=== PATIENT | male | born 1970 | race African-American/Black ===

== ENCOUNTER → 2018-12-07 | Outpatient (REF) | LOC: M LAB LCGH 11:49 | PROVIDERS: ATTEND Surgery | DX: Z00.00 Encounter for general adult medical examination without abnormal findings (principal) ==

== ENCOUNTER → 2022-04-08 | Outpatient (REF) | payer OTHER ==
[2022-04-08 19:35] LABS: TOTAL PROTEIN,RANDOM URINE 40.9 MG/DL (0.0-14.0)
[2022-04-08 19:48] LABS: CORTISOL AM 13.3 UG/DL (4.3-22.4)
[2022-04-08 19:53] LABS: FERRITIN 74.5 NG/ML (10.5-307.3)
[2022-04-08 20:00] LABS: FOLATE 10.7 NG/ML (>5.4)
== END ==
LOC: M LAB REF 17:02
PROVIDERS: ATTEND Internal Medicine Nephrology
DX: I10 Essential (primary) hypertension (principal); N18.31 Chronic kidney disease, stage 3a

== ENCOUNTER → 2022-05-20 | Outpatient (REF) | payer OTHER ==
[2022-05-20 18:51] LABS: MAU/CREAT RATIO 12.2 MCG/MG (0.0-30.0)
== END ==
LOC: M LAB REF 17:11
PROVIDERS: ATTEND Internal Medicine Nephrology
DX: N18.31 Chronic kidney disease, stage 3a (principal)

== ENCOUNTER 2022-06-03 12:59 | Outpatient (CLI) | payer OTHER ==
[~2022-06-03 12:59] MED LIST: ALBUTEROL SULFATE 2.5MG/0.5ML INH NEB SOLN INH PRN; EPINEPHrine INJ 1 MG/ML 1ML AMP IM PRN; diphenhydrAMINE 50MG/ML VIAL IV PRN; methylPREDNISolone 125MG 2ML VIAL IV PRN
[2022-06-03] MEDS ORDERED: MINO2.5T PO (13:19)
[2022-06-03] MEDS ORDERED: HYDR12.55 PO (13:23)
[2022-06-03] MEDS ORDERED: LISI40TA4 PO (13:23)
[2022-06-03] MEDS ORDERED: VITA500C24 PO (13:23)
[2022-06-03] MEDS ORDERED: OMEP10CASR PO (13:23)
[2022-06-03] MEDS ORDERED: ATOR40TA75 PO (13:23)
[2022-06-03] MEDS ORDERED: HYDR100T PO (13:23)
[2022-06-03] MEDS ORDERED: ISOS1TAB12 PO (13:23)
[2022-06-03] MEDS ORDERED: NS 1,000 ML IV SCH (13:30)
[2022-06-03] MEDS ORDERED: FERRIC CARBOXYMALTOSE INJ 750 MG in NS 250 ML (>50kg) IV ONE ×3 (13:30)
[2022-06-03 13:42] VITALS: BP 165/75
[2022-06-03 14:15] VITALS: BP 134/64
== END 2022-06-03 14:30 | disposition home or self-care (01) ==
LOC: M INFU 12:59
PROVIDERS: ATTEND Internal Medicine Nephrology
DX: E61.1 Iron deficiency (principal); Z88.0 Allergy status to penicillin
CPT/HCPCS: 96365; J1439

== ENCOUNTER 2022-06-17 11:45 | Outpatient (CLI) | payer OTHER ==
[~2022-06-17] VITALS: Ht 182.9 cm; Wt 99.0 kg
[~2022-06-17 11:45] MED LIST changes: +ATOR40TA75 PO; +FERRIC CARBOXYMALTOSE INJ 750 MG in NS 250 ML (>50kg) IV ONE; +HYDR100T PO; +HYDR12.55 PO; +ISOS1TAB12 PO; +LISI40TA4 PO; +MINO2.5T PO; +NS 1,000 ML IV SCH; +OMEP10CASR PO; +VITA500C24 PO
[2022-06-17 11:50] VITALS: BP 140/81
[2022-06-17] MEDS ORDERED: FERRIC CARBOXYMALTOSE INJ 750 MG in NS 250 ML (>50kg) IV ONE ×3 (13:00)
[2022-06-17] MEDS ORDERED: NS 1,000 ML IV SCH (13:00)
[2022-06-17 13:10] VITALS: BP 150/71
== END 2022-06-17 13:10 | disposition home or self-care (01) ==
LOC: M INFU 11:45
PROVIDERS: ATTEND Internal Medicine Nephrology
DX: E61.1 Iron deficiency (principal); Z88.0 Allergy status to penicillin
CPT/HCPCS: 96365; J1439

== ENCOUNTER 2022-07-08 19:13 | Inpatient (IN) | payer OTHER ==
[~2022-07-08] VITALS: Ht 182.9 cm; Wt 97.7 kg
[~2022-07-08 19:13] MED LIST changes: -ASCO500T PO; -ASPI-161 PO; -ATOR1TAB19 PO; -FERR32TA PO; -HYDR-3490 PO; -ISOS1TAB35 PO; -OMEP-173 PO
[2022-07-08 20:31] LABS: MEAN CORPUSCULAR HEMOGLOBIN 29.3 pg (27.0-33.0); MEAN CORPUSCULAR HGB CONC 31.1 g/dl (32.0-36.5); MEAN CORPUSCULAR VOLUME 94.3 fl (80.0-96.0); RED BLOOD COUNT 1.74 10^6/uL (4.30-6.10); WHITE BLOOD COUNT 2.4 10^3/uL (4.0-10.0)
[2022-07-08 20:36] LABS: PLATELET COUNT, AUTOMATED 50 10^3/uL (150-450)
[2022-07-08 20:37] LABS: HEMOGLOBIN 5.1 g/dl (13.5-17.5)
[2022-07-08 20:38] LABS: HEMATOCRIT 16.4 % (42.0-52.0)
[2022-07-08 20:40] LABS: INR 0.94; PROTHROMBIN TIME 12.8 SECONDS (12.5-14.5)
[2022-07-08 20:41] LABS: PARTIAL THROMBOPLASTIN TIME 31.5 SECONDS (24.8-34.2)
[2022-07-08 21:28] LABS: LYMPHOCYTES 42 % (16-44); NEUTROPHILS 50 % (28-66)
[2022-07-08 21:35] LABS: ATYPICAL LYMPH 2 % (0-5); MONOCYTES 6 % (0-5)
[2022-07-08 21:36] LABS: HYPOCHROMASIA 3+; TEAR DROP CELLS 1+
[2022-07-08 21:40] VITALS: BP 159/71
[2022-07-08 21:40] LABS: ANISOCYTOSIS 3+
[2022-07-08 21:43] LABS: PLATELET ESTIMATE MARKED DECREASE (NORMAL)
[2022-07-08 21:45] LABS: ALBUMIN 2.3 G/DL (3.2-5.2); ALKALINE PHOSPHATASE 90 U/L (46-116); ALT/SGPT 16 U/L (7.0-40); AST/SGOT 14 U/L (<34); BILIRUBIN,DIRECT < 0.1 MG/DL (<0.4); BILIRUBIN,TOTAL 0.3 MG/DL (0.3-1.2); BLOOD UREA NITROGEN 54 MG/DL (9-23); CALCIUM LEVEL 8.2 MG/DL (8.5-10.1); CARBON DIOXIDE LEVEL 23 MMOL/L (20-31); CHLORIDE LEVEL 104 MMOL/L (98-107); CREATININE FOR GFR 1.38 MG/DL (0.70-1.30); GLOMERULAR FILTRATION RATE > 60.0 (>56); GLUCOSE, FASTING 99 MG/DL (60-100); POTASSIUM SERUM 4.2 MMOL/L (3.5-5.1); SODIUM LEVEL 135 MMOL/L (136-145); TOTAL PROTEIN 10.1 G/DL (5.7-8.2)
[2022-07-08 21:57] LABS: RSV AMPLIFICATION NEGATIVE (NEGATIVE)
[2022-07-08] MEDS ORDERED: ACETAMINOPHEN TAB 650MG DOSE (2X325MG) PO PRN (22:30)
[2022-07-08] MEDS ORDERED: FERR32TA PO (22:54)
[2022-07-08] MEDS ORDERED: HYDR-3490 PO (22:54)
[2022-07-08] MEDS ORDERED: ISOS1TAB35 PO (22:54)
[2022-07-08] MEDS ORDERED: ASPI-161 PO (22:54)
[2022-07-08] MEDS ORDERED: OMEP-173 PO (22:54)
[2022-07-08] MEDS ORDERED: ATOR1TAB19 PO (22:54)
[2022-07-08] MEDS ORDERED: ASCO500T PO (22:54)
[2022-07-08] MEDS ORDERED: HOME MED LIST COMPLETE! XX SCH (22:55)
[2022-07-08 23:36] VITALS: BP 167/89
[2022-07-08 23:45] VITALS: BP 167/89
[2022-07-09] VITALS (13 sets, daily range): BP systolic 146–164; BP diastolic 76–94
[2022-07-09] MEDS: ISOSORBIDE MON. (IMDUR) 30MG XR TAB PO SCH ×2 (01:43→20:12)
[2022-07-09] MEDS: **hydrALAZINE** 50 MG TAB PO SCH ×4 (01:44→20:12)
[2022-07-09] MEDS: ATORVASTATIN 10 MG TAB PO SCH ×2 (01:44→20:11)
[2022-07-09 04:29] LABS: IRON (FE) 41 UG/DL (65-175)
[2022-07-09 04:32] LABS: FERRITIN 353.4 NG/ML (10.5-307.3)
[2022-07-09 04:46] LABS: FOLATE 11.78 NG/ML (>5.4); PERCENT SATURATION 21.2 % (19.7-50.0); TOTAL IRON BINDING CAPACITY 193 UG/DL (250-425); VITAMIN B12 LEVEL 466 PG/ML (211-911)
[2022-07-09 05:38] LABS: MEAN CORPUSCULAR HEMOGLOBIN 29.6 pg (27.0-33.0); MEAN CORPUSCULAR HGB CONC 32.1 g/dl (32.0-36.5); MEAN CORPUSCULAR VOLUME 92.2 fl (80.0-96.0); RED BLOOD COUNT 2.06 10^6/uL (4.30-6.10); WHITE BLOOD COUNT 2.2 10^3/uL (4.0-10.0)
[2022-07-09 05:40] LABS: HEMOGLOBIN 6.1 g/dl (13.5-17.5)
[2022-07-09 05:41] LABS: PLATELET COUNT, AUTOMATED 44 10^3/uL (150-450)
[2022-07-09 06:15] LABS: BLOOD UREA NITROGEN 51 MG/DL (9-23); CALCIUM LEVEL 8.1 MG/DL (8.5-10.1); CARBON DIOXIDE LEVEL 24 MMOL/L (20-31); CHLORIDE LEVEL 104 MMOL/L (98-107); CREATININE FOR GFR 1.27 MG/DL (0.70-1.30); GLOMERULAR FILTRATION RATE > 60.0 (>56); GLUCOSE, FASTING 92 MG/DL (60-100); MAGNESIUM LEVEL 1.6 MG/DL (1.8-2.4); POTASSIUM SERUM 4.5 MMOL/L (3.5-5.1); SODIUM LEVEL 134 MMOL/L (136-145)
[2022-07-09] MEDS: FERROUS GLUCONATE 324 MG TAB PO SCH (09:06)
[2022-07-09] MEDS: PANTOPRAZOLE 40MG VIAL IV SCH (09:07)
[2022-07-09] MEDS: lisinopriL 40MG TAB PO SCH (09:07)
[2022-07-09 15:56] LABS: HEMOGLOBIN 8.4 g/dl (13.5-17.5); MEAN CORPUSCULAR HGB CONC 32.3 g/dl (32.0-36.5); MEAN CORPUSCULAR VOLUME 92.9 fl (80.0-96.0); PLATELET COUNT, AUTOMATED 44 10^3/uL (150-450); WHITE BLOOD COUNT 2.1 10^3/uL (4.0-10.0)
[2022-07-09 16:22] LABS: ATYPICAL LYMPH 7 % (0-5); BASOPHILS 1 % (0-1); LYMPHOCYTES 31 % (16-44); MONOCYTES 4 % (0-5); NEUTROPHILS 56 % (28-66); PLATELET ESTIMATE DECREASED (NORMAL)
[2022-07-09 16:24] LABS: ANISOCYTOSIS 1+; HYPOCHROMASIA 1+
[2022-07-09] MEDS: MAGNESIUM OXIDE 400MG TAB (MAG-OX) PO SCH (20:11)
[2022-07-10 06:00] VITALS: BP 127/68
[2022-07-10 06:10] LABS: HEMATOCRIT 23.8 % (42.0-52.0); HEMOGLOBIN 7.6 g/dl (13.5-17.5); MEAN CORPUSCULAR HEMOGLOBIN 29.8 pg (27.0-33.0); MEAN CORPUSCULAR HGB CONC 31.9 g/dl (32.0-36.5); MEAN CORPUSCULAR VOLUME 93.3 fl (80.0-96.0); RED BLOOD COUNT 2.55 10^6/uL (4.30-6.10); WHITE BLOOD COUNT 2.4 10^3/uL (4.0-10.0)
[2022-07-10 06:15] LABS: PLATELET COUNT, AUTOMATED 41 10^3/uL (150-450)
[2022-07-10 06:35] LABS: BLOOD UREA NITROGEN 51 MG/DL (9-23); CALCIUM LEVEL 8.4 MG/DL (8.5-10.1); CARBON DIOXIDE LEVEL 23 MMOL/L (20-31); CHLORIDE LEVEL 101 MMOL/L (98-107); CREATININE FOR GFR 1.26 MG/DL (0.70-1.30); GLOMERULAR FILTRATION RATE > 60.0 (>56); GLUCOSE, FASTING 105 MG/DL (60-100); POTASSIUM SERUM 4.3 MMOL/L (3.5-5.1); SODIUM LEVEL 132 MMOL/L (136-145)
[2022-07-10 06:41] LABS: ATYPICAL LYMPH 1 % (0-5); LYMPHOCYTES 42 % (16-44); MONOCYTES 2 % (0-5); NEUTROPHILS 54 % (28-66)
[2022-07-10 06:43] LABS: ANISOCYTOSIS 2+; PLATELET ESTIMATE MARKED DECREASE (NORMAL)
[2022-07-10 06:44] LABS: HYPOCHROMASIA 1+
[2022-07-10 06:45] LABS: POLYCHROMASIA 1+
[2022-07-10 06:46] LABS: TEAR DROP CELLS 1+
[2022-07-10 08:00] VITALS: BP 170/70
[2022-07-10] MEDS ORDERED: FUROSEMIDE 40MG/4ML VIAL IV ONE (08:30)
[2022-07-10] MEDS: **hydrALAZINE** 50 MG TAB PO SCH ×3 (10:27→19:44)
[2022-07-10] MEDS: lisinopriL 40MG TAB PO SCH (10:27)
[2022-07-10] MEDS: FERROUS GLUCONATE 324 MG TAB PO SCH (10:28)
[2022-07-10] MEDS: MAGNESIUM OXIDE 400MG TAB (MAG-OX) PO SCH ×2 (10:28→19:43)
[2022-07-10] MEDS: PANTOPRAZOLE 40MG VIAL IV SCH (10:40)
[2022-07-10 11:30] VITALS: BP 152/98
[2022-07-10 13:26] VITALS: BP 154/84
[2022-07-10] MEDS: ATORVASTATIN 10 MG TAB PO SCH (19:43)
[2022-07-10] MEDS: ISOSORBIDE MON. (IMDUR) 30MG XR TAB PO SCH (19:43)
[2022-07-10 20:00] VITALS: BP 161/87
[2022-07-11 06:00] VITALS: BP 152/83
[2022-07-11 06:23] LABS: HEMATOCRIT 24.3 % (42.0-52.0); HEMOGLOBIN 7.8 g/dl (13.5-17.5); MEAN CORPUSCULAR HEMOGLOBIN 30.1 pg (27.0-33.0); MEAN CORPUSCULAR HGB CONC 32.1 g/dl (32.0-36.5); MEAN CORPUSCULAR VOLUME 93.8 fl (80.0-96.0); RED BLOOD COUNT 2.59 10^6/uL (4.30-6.10); WHITE BLOOD COUNT 2.6 10^3/uL (4.0-10.0)
[2022-07-11 06:30] LABS: PLATELET COUNT, AUTOMATED 40 10^3/uL (150-450)
[2022-07-11 06:50] LABS: ATYPICAL LYMPH 2 % (0-5); LYMPHOCYTES 38 % (16-44); MONOCYTES 3 % (0-5); NEUTROPHILS 57 % (28-66)
[2022-07-11 06:53] LABS: BLOOD UREA NITROGEN 49 MG/DL (9-23); CALCIUM LEVEL 8.4 MG/DL (8.5-10.1); CARBON DIOXIDE LEVEL 24 MMOL/L (20-31); CHLORIDE LEVEL 100 MMOL/L (98-107); CREATININE FOR GFR 1.38 MG/DL (0.70-1.30); GLOMERULAR FILTRATION RATE > 60.0 (>56); GLUCOSE, FASTING 96 MG/DL (60-100); POTASSIUM SERUM 4.1 MMOL/L (3.5-5.1); SODIUM LEVEL 132 MMOL/L (136-145)
[2022-07-11 06:56] LABS: ANISOCYTOSIS 2+; PLATELET ESTIMATE MARKED DECREASE (NORMAL); POLYCHROMASIA 1+; ROULEAUX 1+
[2022-07-11 06:57] LABS: HYPOCHROMASIA 1+
[2022-07-11 07:00] LABS: SCHISTOCYTES 1+
[2022-07-11] MEDS: **hydrALAZINE** 50 MG TAB PO SCH ×3 (08:49→20:17)
[2022-07-11] MEDS: lisinopriL 40MG TAB PO SCH (08:49)
[2022-07-11] MEDS: FERROUS GLUCONATE 324 MG TAB PO SCH (08:49)
[2022-07-11] MEDS: MAGNESIUM OXIDE 400MG TAB (MAG-OX) PO SCH ×2 (08:49→20:16)
[2022-07-11] MEDS: PANTOPRAZOLE 40MG VIAL IV SCH (08:51)
[2022-07-11 14:00] VITALS: BP 118/63
[2022-07-11] MEDS: ATORVASTATIN 10 MG TAB PO SCH (20:17)
[2022-07-11] MEDS: ISOSORBIDE MON. (IMDUR) 30MG XR TAB PO SCH (20:17)
[2022-07-11 22:00] VITALS: BP 149/87
[2022-07-12 06:00] VITALS: BP 149/87
[2022-07-12 06:31] LABS: HEMATOCRIT 24.2 % (42.0-52.0); HEMOGLOBIN 7.7 g/dl (13.5-17.5); MEAN CORPUSCULAR HGB CONC 31.8 g/dl (32.0-36.5); MEAN CORPUSCULAR VOLUME 94.2 fl (80.0-96.0); RED BLOOD COUNT 2.57 10^6/uL (4.30-6.10); WHITE BLOOD COUNT 2.7 10^3/uL (4.0-10.0)
[2022-07-12 06:43] LABS: PLATELET COUNT, AUTOMATED 37 10^3/uL (150-450)
[2022-07-12 07:01] LABS: ANISOCYTOSIS 2+; ATYPICAL LYMPH 4 % (0-5); LYMPHOCYTES 36 % (16-44); MONOCYTES 7 % (0-5); NEUTROPHILS 53 % (28-66); PLATELET ESTIMATE DECREASED (NORMAL)
[2022-07-12 07:02] LABS: HYPOCHROMASIA 1+; ROULEAUX 2+
[2022-07-12 07:04] LABS: BLOOD UREA NITROGEN 52 MG/DL (9-23); CALCIUM LEVEL 8.7 MG/DL (8.5-10.1); CARBON DIOXIDE LEVEL 22 MMOL/L (20-31); CHLORIDE LEVEL 104 MMOL/L (98-107); CREATININE FOR GFR 1.36 MG/DL (0.70-1.30); GLOMERULAR FILTRATION RATE > 60.0 (>56); GLUCOSE, FASTING 97 MG/DL (60-100); POTASSIUM SERUM 4.2 MMOL/L (3.5-5.1); SODIUM LEVEL 132 MMOL/L (136-145)
[2022-07-12] MEDS: PANTOPRAZOLE 40MG VIAL IV SCH (08:40)
[2022-07-12] MEDS: **hydrALAZINE** 50 MG TAB PO SCH ×2 (08:42→16:29)
[2022-07-12] MEDS: lisinopriL 40MG TAB PO SCH (08:43)
[2022-07-12] MEDS: FERROUS GLUCONATE 324 MG TAB PO SCH (08:43)
[2022-07-12] MEDS: MAGNESIUM OXIDE 400MG TAB (MAG-OX) PO SCH (08:43)
[2022-07-12] MEDS ORDERED: LIDOCAINE 1% MDV 20ML VIAL As Ordered ONE (12:09)
[2022-07-12 13:00] VITALS: BP 150/90
[2022-07-12 14:00] VITALS: BP 154/89
[2022-07-12 16:29] VITALS: BP 154/89
== END 2022-07-12 18:15 | disposition home or self-care (01) | DRG 661 ==
LOC: M ED 19:13 → M ED INP 22:28 → M MSPAV 23:40
PROVIDERS: ADMIT Family Medicine; ATTEND Internal Medicine Nephrology
PROC: 30233N1 Transfusion of Nonautologous Red Blood Cells into Peripheral Vein, Percutaneous Approach (ICD-10-PCS; principal; 2022-07-08)
PROC: 07DR3ZX Extraction of Iliac Bone Marrow, Percutaneous Approach, Diagnostic (ICD-10-PCS; 2022-07-12)
DX: D69.6 Thrombocytopenia, unspecified (principal); D50.9 Iron deficiency anemia, unspecified; I10 Essential (primary) hypertension; E78.5 Hyperlipidemia, unspecified; K27.9 Peptic ulcer, site unspecified, unspecified as acute or chronic, without hemorrhage or perforation; Z86.73 Personal history of transient ischemic attack (TIA), and cerebral infarction without residual deficits; Z79.899 Other long term (current) drug therapy; Z88.0 Allergy status to penicillin; Z79.82 Long term (current) use of aspirin

== ENCOUNTER → 2022-07-08 | Outpatient (REF) | payer OTHER ==
[~2022-07-08] MED LIST changes: -ALBUTEROL SULFATE 2.5MG/0.5ML INH NEB SOLN INH PRN; +ASCO500T PO; +ASPI-161 PO; +ATOR1TAB19 PO; -EPINEPHrine INJ 1 MG/ML 1ML AMP IM PRN; +FERR32TA PO; -FERRIC CARBOXYMALTOSE INJ 750 MG in NS 250 ML (>50kg) IV ONE; +HYDR-3490 PO; +ISOS1TAB35 PO; -NS 1,000 ML IV SCH; +OMEP-173 PO; -diphenhydrAMINE 50MG/ML VIAL IV PRN; -methylPREDNISolone 125MG 2ML VIAL IV PRN
[2022-07-08 16:11] LABS: POTASSIUM SERUM 4.3 MMOL/L (3.5-5.1)
== END ==
LOC: M LAB REF 15:08
PROVIDERS: ATTEND Internal Medicine Nephrology
DX: N18.31 Chronic kidney disease, stage 3a (principal)

== ENCOUNTER 2022-07-29 08:40 | Outpatient (CLI) | payer OTHER ==
[~2022-07-29] VITALS: Ht 182.9 cm; Wt 95.0 kg
[~2022-07-29 08:40] MED LIST changes: +ACETAMINOPHEN TAB 650MG DOSE (2X325MG) PO SCH; +ASCO500T PO; +ASPI-161 PO; +ATOR1TAB19 PO; +FERR32TA PO; +HYDR-3490 PO; +ISOS1TAB35 PO; +OMEP-173 PO; +diphenhydrAMINE 25MG CAP PO SCH
[2022-07-29 10:50] VITALS: BP 135/67
[2022-07-29 11:05] VITALS: BP 145/65
[2022-07-29 12:28] VITALS: BP 158/82
[2022-07-29 12:50] VITALS: BP 158/68
[2022-07-29 14:20] VITALS: BP 138/76
== END 2022-07-29 14:20 | disposition home or self-care (01) ==
LOC: M INFU 08:40
PROVIDERS: ATTEND Specialist
DX: C83.00 Small cell B-cell lymphoma, unspecified site (principal); D61.818 Other pancytopenia; Z88.0 Allergy status to penicillin
CPT/HCPCS: 36415; 36430; 82784; 83521; 84155; 84165; 85810; 86334; P9016

== ENCOUNTER → 2022-12-09 | Outpatient (CLI) | payer OTHER ==
[~2022-12-09] MED LIST changes: -ACETAMINOPHEN TAB 650MG DOSE (2X325MG) PO SCH; +ALLO300T2 PO; +GASTROGRAFIN SOLUTION 30ML As Ordered ONE; +ISOVUE-370 76% 100ML VIAL As Ordered ONE; +PRED50TA PO; +ZANU80CA PO; +ZYLO100T2 PO; -diphenhydrAMINE 25MG CAP PO SCH
== END ==
LOC: M RAD 12:48
PROVIDERS: ATTEND Specialist
DX: C83.00 Small cell B-cell lymphoma, unspecified site (principal)
CPT/HCPCS: 71260; 74177; Q9963; Q9967

== ENCOUNTER → 2023-06-03 | Outpatient (CLI) | payer OTHER ==
[~2023-06-03] MED LIST changes: -GASTROGRAFIN SOLUTION 30ML As Ordered ONE; +ISOS1TAB36; -ISOVUE-370 76% 100ML VIAL As Ordered ONE
== END ==
LOC: M RAD 09:01
PROVIDERS: ATTEND Specialist
DX: C85.90 Non-Hodgkin lymphoma, unspecified, unspecified site (principal); R07.9 Chest pain, unspecified

== ENCOUNTER 2023-06-11 19:12 | Emergency (ER) | payer MEDICAID, OTHER ==
[~2023-06-11] VITALS: Ht 182.9 cm; Wt 105.0 kg
[2023-06-11] MEDS ORDERED: KETOROLAC 30 MG/ML 1ML VIAL IV ONE (21:40)
[2023-06-11] MEDS: ACETAMINOPHEN *IV* 1,000 MG in IV 1 EA IV ONE (22:17)
[2023-06-11 22:25] LABS: BASO # 0.1 10^3/uL (0.0-0.2); BASO % 0.3 % (0.0-1.0); EOS % 0.1 % (0.0-3.0); HEMATOCRIT 32.5 % (42.0-52.0); HEMOGLOBIN 11.2 g/dl (13.5-17.5); LYMPH # 2.1 10^3/uL (1.5-5.0); LYMPH % 13.9 % (24.0-44.0); MEAN CORPUSCULAR HEMOGLOBIN 32.2 pg (27.0-33.0); MEAN CORPUSCULAR HGB CONC 34.5 g/dl (32.0-36.5); MEAN CORPUSCULAR VOLUME 93.4 fl (80.0-96.0); MONO # 1.6 10^3/uL (0.0-0.8); MONO % 10.6 % (2.0-8.0); NEUTROPHILS # 11.2 10^3/uL (1.5-8.5); NEUTROPHILS % 74.8 % (36.0-66.0); PLATELET COUNT, AUTOMATED 280 10^3/uL (150-450); RED BLOOD COUNT 3.48 10^6/uL (4.30-6.10); WHITE BLOOD COUNT 14.9 10^3/uL (4.0-10.0)
[2023-06-11 22:31] LABS: APPEARANCE, URINE CLEAR (CLEAR); BACTERIA, URINE AUTO NEGATIVE (NEGATIVE); BILIRUBIN, URINE AUTO NEGATIVE (NEGATIVE); BLOOD, URINE BLOOD NEGATIVE (NEGATIVE); COLOR, URINE YELLOW (YELLOW); GLUCOSE, URINE (UA) AUTO NEGATIVE (NEGATIVE); KETONE, URINE AUTO NEGATIVE (NEGATIVE); LEUKOCYTE ESTERASE, URINE AUTO NEGATIVE (NEGATIVE); NITRITE, URINE AUTO NEGATIVE (NEGATIVE); PROTEIN, URINE AUTO 1+ mg/dL (NEGATIVE); RBC, URINE AUTO 4 /HPF (0-3); SPECIFIC GRAVITY URINE AUTO 1.035 (1.002-1.035); SQUAMOUS EPITHELIAL CELL UR AU 0 /HPF (0-6); UROBILINOGEN, URINE AUTO 0.2 mg/dL (0.0-2.0); WBC, URINE AUTO 2 /HPF (0-3)
[2023-06-11 22:40] LABS: LIPASE 35 U/L (12-53)
[2023-06-11 22:43] LABS: ALKALINE PHOSPHATASE 124 U/L (46-116); ALT/SGPT 16 U/L (7.0-40); AST/SGOT 16 U/L (<34); BILIRUBIN,DIRECT 0.2 MG/DL (<0.4); BILIRUBIN,TOTAL 0.7 MG/DL (0.3-1.2); BLOOD UREA NITROGEN 18 MG/DL (9-23); CALCIUM LEVEL 9.3 MG/DL (8.5-10.1); CARBON DIOXIDE LEVEL 22 MMOL/L (20-31); CHLORIDE LEVEL 106 MMOL/L (98-107); CREATININE FOR GFR 1.55 MG/DL (0.70-1.30); GLOMERULAR FILTRATION RATE > 60.0 (>56); GLUCOSE, FASTING 108 MG/DL (60-100); POTASSIUM SERUM 4.4 MMOL/L (3.5-5.1); SODIUM LEVEL 137 MMOL/L (136-145); TOTAL PROTEIN 7.6 G/DL (5.7-8.2)
[2023-06-12] MEDS ORDERED: ACET300T47 PO ×2 (00:38→12:14)
[2023-06-12 00:45] VITALS: BP 162/89; TEMP 97.8; O2SAT 98
== END 2023-06-12 01:03 | disposition home or self-care (01) ==
LOC: M ED 19:12 → EDBD 19:12 → M ED 06-12 01:03
DX: R10.9 Unspecified abdominal pain (principal); S22.050A Wedge compression fracture of T5-T6 vertebra, initial encounter for closed fracture; D18.09 Hemangioma of other sites; K21.9 Gastro-esophageal reflux disease without esophagitis; I10 Essential (primary) hypertension; E78.5 Hyperlipidemia, unspecified; N18.9 Chronic kidney disease, unspecified; Z88.0 Allergy status to penicillin; Z79.02 Long term (current) use of antithrombotics/antiplatelets; Z79.811 Long term (current) use of aromatase inhibitors; Z79.899 Other long term (current) drug therapy
CPT/HCPCS: 72128; 72131; 74176; 80048; 80076; 81001; 83690; 85025; 96365; 99284; J0131

== ENCOUNTER 2023-06-15 15:37 | Observation (INO) | payer OTHER ==
[~2023-06-15] VITALS: Ht 182.9 cm; Wt 103.2 kg
[~2023-06-15 15:37] MED LIST changes: +ACET300T47 PO; -ASPI-161 PO; +ASPI-615 PO
[2023-06-15 18:15] LABS: BASO % 0.3 % (0.0-1.0); HEMATOCRIT 33.5 % (42.0-52.0); HEMOGLOBIN 11.6 g/dl (13.5-17.5); LYMPH # 1.1 10^3/uL (1.5-5.0); LYMPH % 7.5 % (24.0-44.0); MEAN CORPUSCULAR HEMOGLOBIN 32.2 pg (27.0-33.0); MEAN CORPUSCULAR HGB CONC 34.6 g/dl (32.0-36.5); MEAN CORPUSCULAR VOLUME 93.1 fl (80.0-96.0); MONO # 1.1 10^3/uL (0.0-0.8); MONO % 7.9 % (2.0-8.0); NEUTROPHILS # 11.8 10^3/uL (1.5-8.5); NEUTROPHILS % 83.8 % (36.0-66.0); PLATELET COUNT, AUTOMATED 295 10^3/uL (150-450); WHITE BLOOD COUNT 14.1 10^3/uL (4.0-10.0)
[2023-06-15 18:40] LABS: CK-MB VALUE MASS 1.1 NG/ML (<3.6)
[2023-06-15 18:42] LABS: BILIRUBIN,DIRECT 0.2 MG/DL (<0.4); BILIRUBIN,TOTAL 0.5 MG/DL (0.3-1.2); CALCIUM LEVEL 9.3 MG/DL (8.5-10.1); CREATININE FOR GFR 2.32 MG/DL (0.70-1.30); GLOMERULAR FILTRATION RATE 38.2 (>56); POTASSIUM SERUM 4.2 MMOL/L (3.5-5.1); TOTAL PROTEIN 7.7 G/DL (5.7-8.2)
[2023-06-15 18:48] LABS: MB/CK RELATIVE INDEX 0.36 (< OR =4)
[2023-06-15] MEDS: NS 1,000 ML IV ONE (19:30)
[2023-06-15] MEDS: ONDANSETRON 4MG 2ML VIAL IV ONE (20:37)
[2023-06-15] MEDS: MORPHINE 4 MG/ML 1ML VIAL IV ONE (20:37)
[2023-06-15] MEDS: NS 1,000 ML IV SCH (22:51)
[2023-06-15] MEDS ORDERED: ATOR40TA75 PO (23:04)
[2023-06-15] MEDS ORDERED: ISOS1TAB36 PO (23:04)
[2023-06-15] MEDS ORDERED: HOME MED LIST COMPLETE! XX SCH (23:05)
[2023-06-16] VITALS (10 sets, daily range): BP systolic 132–190; BP diastolic 70–120; TEMP 97.3–97.8; O2SAT 96–98
[2023-06-16] MEDS ORDERED: PERCOCET 5MG/325MG TAB PO PRN (00:20)
[2023-06-16] MEDS: PERCOCET 5MG/325MG TAB PO PRN (02:17)
[2023-06-16] MEDS ORDERED: LABETALOL 100MG/20ML VIAL IV PRN (03:10)
[2023-06-16 04:05] LABS: APPEARANCE, URINE CLEAR (CLEAR); BACTERIA, URINE AUTO NEGATIVE (NEGATIVE); BILIRUBIN, URINE AUTO NEGATIVE (NEGATIVE); BLOOD, URINE BLOOD 1+ (NEGATIVE); COLOR, URINE YELLOW (YELLOW); GLUCOSE, URINE (UA) AUTO NEGATIVE (NEGATIVE); KETONE, URINE AUTO NEGATIVE (NEGATIVE); LEUKOCYTE ESTERASE, URINE AUTO NEGATIVE (NEGATIVE); NITRITE, URINE AUTO NEGATIVE (NEGATIVE); PROTEIN, URINE AUTO NEGATIVE (NEGATIVE); RBC, URINE AUTO 3 /HPF (0-3); SPECIFIC GRAVITY URINE AUTO 1.015 (1.002-1.035); SQUAMOUS EPITHELIAL CELL UR AU 0 /HPF (0-6); UROBILINOGEN, URINE AUTO 0.2 mg/dL (0.0-2.0); WBC, URINE AUTO 1 /HPF (0-3)
[2023-06-16 05:45] LABS: HEMATOCRIT 31.5 % (42.0-52.0); HEMOGLOBIN 10.6 g/dl (13.5-17.5); MEAN CORPUSCULAR HEMOGLOBIN 31.9 pg (27.0-33.0); MEAN CORPUSCULAR HGB CONC 33.7 g/dl (32.0-36.5); MEAN CORPUSCULAR VOLUME 94.9 fl (80.0-96.0); PLATELET COUNT, AUTOMATED 263 10^3/uL (150-450); RED BLOOD COUNT 3.32 10^6/uL (4.30-6.10); WHITE BLOOD COUNT 12.2 10^3/uL (4.0-10.0)
[2023-06-16 06:09] LABS: ALBUMIN 3.5 G/DL (3.2-5.2); CALCIUM LEVEL 8.5 MG/DL (8.5-10.1); CREATININE FOR GFR 1.8 MG/DL (0.70-1.30); GLOMERULAR FILTRATION RATE 51.2 (>56); PHOSPHORUS LEVEL 4.3 MG/DL (2.5-4.9); POTASSIUM SERUM 4.2 MMOL/L (3.5-5.1)
[2023-06-16] MEDS: HEPARIN SOD (PORCINE) 5000UNITS/ML 1ML VIAL/SYRINGE SC SCH (06:32)
[2023-06-16] MEDS ORDERED: traMADol 50 MG TAB PO PRN (08:20)
[2023-06-16] MEDS: **hydrALAZINE** 50 MG TAB PO SCH (08:23)
[2023-06-16] MEDS: OMEPRAZOLE 20MG CAP PO SCH ×2 (08:23→20:27)
[2023-06-16] MEDS: allopurinoL 300 MG TAB PO SCH (08:23)
[2023-06-16] MEDS: traMADol 50 MG TAB PO SCH ×2 (08:48→14:47)
[2023-06-16] MEDS: ACETAMINOPHEN 500 MG TAB PO SCH (08:48)
[2023-06-16] MEDS: BRUKINSA 80 MG PO SCH (12:43)
[2023-06-16] MEDS: ISOSORBIDE MON. (IMDUR) 60MG XR TAB PO SCH (13:27)
[2023-06-16] MEDS: SENOKOT S TAB PO SCH (14:36)
[2023-06-16] MEDS: MIRALAX *UNIT DOSE* 17GM PACKET PO SCH (14:37)
[2023-06-16] MEDS: ATORVASTATIN 20 MG TAB PO SCH (20:26)
[2023-06-17 05:18] VITALS: BP 140/75; TEMP 98.2; O2SAT 96
[2023-06-17] MEDS: ACETAMINOPHEN TAB 650MG DOSE (2X325MG) PO PRN (05:41)
[2023-06-17 06:06] LABS: BASO % 0.5 % (0.0-1.0); EOS % 0.3 % (0.0-3.0); HEMATOCRIT 31.9 % (42.0-52.0); HEMOGLOBIN 10.9 g/dl (13.5-17.5); LYMPH # 1.7 10^3/uL (1.5-5.0); LYMPH % 19.2 % (24.0-44.0); MEAN CORPUSCULAR HEMOGLOBIN 32.2 pg (27.0-33.0); MEAN CORPUSCULAR HGB CONC 34.2 g/dl (32.0-36.5); MEAN CORPUSCULAR VOLUME 94.4 fl (80.0-96.0); MONO # 0.9 10^3/uL (0.0-0.8); MONO % 10.6 % (2.0-8.0); NEUTROPHILS % 69.2 % (36.0-66.0); PLATELET COUNT, AUTOMATED 280 10^3/uL (150-450); RED BLOOD COUNT 3.38 10^6/uL (4.30-6.10); WHITE BLOOD COUNT 8.7 10^3/uL (4.0-10.0)
[2023-06-17 06:39] LABS: BLOOD UREA NITROGEN 23 MG/DL (9-23); CARBON DIOXIDE LEVEL 22 MMOL/L (20-31); CHLORIDE LEVEL 110 MMOL/L (98-107); CREATININE FOR GFR 1.44 MG/DL (0.70-1.30); GLOMERULAR FILTRATION RATE > 60.0 (>56); GLUCOSE, FASTING 98 MG/DL (60-100); POTASSIUM SERUM 4.1 MMOL/L (3.5-5.1); SODIUM LEVEL 140 MMOL/L (136-145)
[2023-06-17] MEDS: GASTROGRAFIN SOLUTION 30ML PO SCH (13:43)
[2023-06-17 14:25] VITALS: BP 148/77; TEMP 98.1; O2SAT 98
[2023-06-17] MEDS ORDERED: ISOVUE-370 76% 100ML VIAL As Ordered ONE (15:08)
[2023-06-17 21:03] VITALS: BP 147/77; TEMP 97.9; O2SAT 97
[2023-06-18 05:43] VITALS: BP 154/90; TEMP 97.9; O2SAT 97
[2023-06-18 06:08] LABS: BASO % 0.5 % (0.0-1.0); EOS % 0.4 % (0.0-3.0); HEMATOCRIT 30.3 % (42.0-52.0); HEMOGLOBIN 10.3 g/dl (13.5-17.5); LYMPH # 1.8 10^3/uL (1.5-5.0); MEAN CORPUSCULAR HEMOGLOBIN 32.3 pg (27.0-33.0); MONO # 0.8 10^3/uL (0.0-0.8); MONO % 9.7 % (2.0-8.0); NEUTROPHILS # 5.3 10^3/uL (1.5-8.5); NEUTROPHILS % 67.1 % (36.0-66.0); PLATELET COUNT, AUTOMATED 266 10^3/uL (150-450); RED BLOOD COUNT 3.19 10^6/uL (4.30-6.10)
[2023-06-18 06:38] LABS: BLOOD UREA NITROGEN 18 MG/DL (9-23); CALCIUM LEVEL 8.6 MG/DL (8.5-10.1); CARBON DIOXIDE LEVEL 22 MMOL/L (20-31); CHLORIDE LEVEL 112 MMOL/L (98-107); CREATININE FOR GFR 1.34 MG/DL (0.70-1.30); GLOMERULAR FILTRATION RATE > 60.0 (>56); GLUCOSE, FASTING 101 MG/DL (60-100); POTASSIUM SERUM 4.1 MMOL/L (3.5-5.1); SODIUM LEVEL 141 MMOL/L (136-145)
[2023-06-18 08:54] VITALS: BP 156/90
[2023-06-18] MEDS: GABAPENTIN 100 MG CAP PO SCH (08:55)
[2023-06-18] MEDS ORDERED: GABA-1171 PO (10:32)
[2023-06-18] MEDS ORDERED: ACET-683 PO (10:32)
[2023-06-18] MEDS ORDERED: TRAM50TA2 PO (10:32)
[2023-06-18] MEDS ORDERED: OMEP-173 PO (10:32)
[2023-06-18] MEDS ORDERED: SENN-52 PO (10:32)
== END 2023-06-18 12:28 | disposition home or self-care (01) ==
LOC: M ED 16:03 → INTOOBSV 23:41 → M ED INP 23:41 → ENRESERV 06-16 00:51 → M MSPAV 06-16 01:50
PROVIDERS: ADMIT Family Medicine; ATTEND Internal Medicine Nephrology
DX: N17.9 Acute kidney failure, unspecified (principal); N18.30 Chronic kidney disease, stage 3 unspecified; I12.9 Hypertensive chronic kidney disease with stage 1 through stage 4 chronic kidney disease, or unspecified chronic kidney disease; E86.0 Dehydration; M54.50 Low back pain, unspecified; R10.9 Unspecified abdominal pain; K59.00 Constipation, unspecified; K44.9 Diaphragmatic hernia without obstruction or gangrene; C88.0 Waldenstrom macroglobulinemia; E78.5 Hyperlipidemia, unspecified; D50.9 Iron deficiency anemia, unspecified; Z86.73 Personal history of transient ischemic attack (TIA), and cerebral infarction without residual deficits; Z79.899 Other long term (current) drug therapy; Z88.0 Allergy status to penicillin; Z79.811 Long term (current) use of aromatase inhibitors
CPT/HCPCS: 74177; 76775; 80048; 80069; 80076; 81001; 82550; 82553; 83690; 85025; 85027; 87086; 87635; 93005; 99285; J2405; Q9963; Q9967